=== PATIENT | male | born 1975 | race African-American/Black ===

== ENCOUNTER 2018-03-29 00:51 | Emergency (ER) | payer OTHER ==
[2018-03-29] MEDS ORDERED: methylPREDNISolone NA SUCC 125 MG/2 ML VIAL IVPUSH ONE (01:07)
[2018-03-29] MEDS ORDERED: MAGNESIUM SULF 50% (8.12 MEQ/2 ML-1 GM VIAL) IVPB ONE (01:07)
[2018-03-29] MEDS ORDERED: ALBUTEROL SO4 2.5/IPRATROPIUM 0.5 INH SOL 3 ML VIAL.NEB. NEB ONE ×6 (01:10→04:18)
[2018-03-29] MEDS ORDERED: EPINEPHrine 1:1,000 0.3 MG/0.3 ML SYR IM ONE (01:10)
--- NOTE | 2018-03-29 01:15 | PDOC ---
History of Present Illness - General Chief Complaint: Shortness of Breath Stated Complaint: ASTHMA Time Seen by Provider: 03/29/18 00:58 - History of Present Illness Initial Comments: 03/29/18 03:32 The patient is a 42 year old male with a PMH of Asthma (PRN Ventolin @ home, no intubations, no hospitalizations) who presents to our ED tonight c/o acute onset of shortness of breath. Patient notes a 2-3 day h/o viral URI symptoms including cough and runny nose. Patient took Advil this evening and 20 minutes later began feeling short of breath. Patient's @ bedside assists in history. Notes patient also had 4-5 episodes of NBNB emesis. Patient notes a h /o Ibuprofen allergy (rash) and states they were unaware that Advil contained Ibuprofen. Allergy: Ibuprofen Surgical: denies Social: denies toxic habits PMD: Dr. Chaparro Whipple As per EMR, patient has not been evaluated in our ED on prior occasion. Past History - Past Medical History Allergies/Adverse Reactions: Allergies Allergy/AdvReac Type Severity Reaction Status Date / Time ibuprofen Allergy Verified 03/29/18 00:56 Home Medications: Ambulatory Orders Azithromycin [Zithromax -] 250 mg PO DAILY 4 Days #4 tablet 03/29/18 EPINEPHrine (EPI-PEN 0.3MG) [Epipen 0.3MG -] 0.3 mg IM ASDIR #2 pens 03/29/18 Prednisone [Deltasone] 40 mg PO DAILY #4 tablet 03/29/18 Asthma: Yes COPD: No - Suicide/Smoking/Psychosocial Hx Smoking History: Never smoked Review of Systems - Review of Systems Constitutional: No: Chills, Fever HEENTM: No: Blurred Vision, Double Vision Respiratory: Yes: Shortness of Breath. No: Hemoptysis Cardiac (ROS): Yes: Chest Pain. No: Lightheadedness, Palpitations, Syncope ABD/GI: No: Constipated, Diarrhea, Nausea, Vomiting : No: Burning, Dysuria *Physical Exam - Vital Signs Last Vital Signs Temp Pulse Resp BP Pulse Ox 98.0 F 110 H 30 H 140/92 83 L 03/29/18 00:52 03/29/18 00:52 03/29/18 00:52 03/29/18 00:52 03/29/18 00:52 - Physical Exam General Appearance: Yes: Nourished, Mild Distress Neck: positive: Trachea midline, Supple Respiratory/Chest: positive: Labored Respiration, Wheezing Cardiovascular: positive: S1, S2. negative: Edema, JVD Gastrointestinal/Abdominal: positive: Normal Bowel Sounds, Soft Extremity: positive: Normal Capillary Refill, Normal Inspection Integumentary: positive: Normal Color, Dry, Warm Neurologic: positive: Fully Oriented, Alert ED Treatment Course - LABORATORY CBC & Chemistry Diagram: 03/29/18 01:30 03/29/18 01:30 - RADIOLOGY Radiology Studies Ordered: Category Date Time Status CXRPORT [CHEST X-RAY PORTABLE*] [RAD] Stat Radiology 03/29/18 01:06 Ordered Medical Decision Making - Medical Decision Making 03/29/18 02:57 42 year old male presents with dyspnea. Tachypneic (RR 20's) and Dyspneic ( SpO2 high 80's) @ presentation. Duo Neb + BIPAP + IV Solumedrol + Mg for presumed asthma exacerbation. ABG, CXR. Close monitoring for respiratory distress including CO2 narcosis. 03/29/18 03:37 S/p Duo-Neb patient continues to wheeze, however trial off Bipap patient SpO2 90 's. Will administer another Duo-Neb and reassess. CXR shows R sided infiltrate - read as possible pneumo. Will give Azithro + Ceftriaxone. 03/29/18 04:59 Patient SpO2 95% on RA. Will discharge home with return precautions, Zpack + 4 day course of steroids. I discussed the physical exam findings, ancillary test results and final diagnoses with the patient. I answered all of the patient's questions. The patient was satisfied with the care received and felt comfortable with the discharge plan and treatment plan. The patient will return to the Emergency Department with any new, persistent or worsening symptoms. *DC/Admit/Observation/Transfer Diagnosis at time of Disposition: Asthma attack - Discharge Dispostion Disposition: HOME Condition at time of disposition: Good Decision to Admit order: No - Prescriptions Prescriptions: Azithromycin [Zithromax -] 250 mg PO DAILY 4 Days #4 tablet EPINEPHrine (EPI-PEN 0.3MG) [Epipen 0.3MG -] 0.3 mg IM ASDIR #2 pens Prednisone [Deltasone] 40 mg PO DAILY #4 tablet - Referrals Referrals: Chaparro Whipple MD [Primary Care Provider] - - Patient Instructions Additional Instructions: Please follow-up with your primary care provider in the next 2 days. We have provided a copy of your chest x-ray report. Please bring this to your appointment with your doctor. We have prescribed an antibiotic and steroids for you. Please take the entire prescribed course. We have also prescribed an Epi pen for your allergy. Refrain from using medications or products that contain Ibuprofen/Advil. Return to the Emergency Department for any new/worsening/concerning symptoms including shortness of breath, chest pain, or allergic reactions. - Post Discharge Activity
[2018-03-29] MEDS ORDERED: EPINEPHrine/PF 1 MG/1 ML (1:1,000) AMPULE ONE (01:16)
[2018-03-29 01:20] VITALS: BMI 28.4
[2018-03-29] MEDS ORDERED: MAGNESIUM 1GM/D5W - 2 GM/200 ML IVPB IVPB ONE (01:22)
[2018-03-29] MEDS ORDERED: methylPREDNISolone NA SUCC 125 MG/2 ML VIAL ONE (01:22)
[2018-03-29 01:37] LABS: BASO % 0.5 % (0-2.0); EOS % 4.2 % (0-4.5); HEMATOCRIT 47.3 % (35.4-49); HEMOGLOBIN 15.5 GM/dL (11.7-16.9); LYMPH % 23.3 % (8-40); MCH 29.5 pg (25.7-33.7); MCHC 32.8 g/dl (32.0-35.9); MEAN CELL VOLUME 89.9 fl (80-96); MEAN PLT VOLUME 8.4 fl (7.5-11.1); PLATELET COUNT 379 K/MM3 (134-434); RBC 5.26 M/mm3 (4.00-5.60); RDW 14.7 % (11.9-15.9); WHITE BLOOD COUNT 11.4 K/mm3 (4.0-10.0)
[2018-03-29 01:49] LABS: ARTERIAL BLD GAS O2 SATURATION 91.6 % (90-98.9); ARTERIAL BLOOD GAS BASE EXCESS 0.2 meq/l (-2-2); ARTERIAL BLOOD GAS PCO2 52.5 mmHg (35-45); ARTERIAL BLOOD GAS pH 7.33 (7.35-7.45)
[2018-03-29 01:51] LABS: ALLENS TEST POSITIVE
[2018-03-29 02:16] LABS: ALBUMIN 3.7 g/dl (3.4-5.0); ALK PHOS 91 U/L (45-117); ANION GAP 3 MMOL/L (8-16); BILIRUBIN,TOTAL 0.3 mg/dL (0.2-1); BLOOD UREA NITROGEN 19 mg/dL (7-18); CALCIUM 8.6 mg/dL (8.5-10.1); CHLORIDE 104 mmol/L (98-107); CO2 32 mmol/L (21-32); CREATININE 1.5 mg/dL (0.55-1.3); GLUCOSE,RANDOM 105 mg/dL (74-106); N-TERMINAL BNP 41.7 pg/ml (5-125); POTASSIUM 4.7 mmol/L (3.5-5.1); SGOT/AST 42 U/L (15-37); SGPT/ALT 35 U/L (13-61); SODIUM 139 mmol/L (136-145); TOT PROT 7.8 g/dl (6.4-8.2)
--- NOTE | 2018-03-29 03:11 | PDOC ---
Attending Attestation - Medical Decision Making 03/29/18 03:17 EXAM: X-RAY CHEST Ill-defined opacities left perihilar region and bilateral lung bases, possibly pneumonia or atypical infection. No pleural effusions. Normal heart size. Read by: Maria Luz Grewal M.D. <Nadine Mccormick - Last Filed: 03/29/18 03:17> - Resident Resident Name: Mariana Giles - ED Attending Attestation I have performed the following: I have examined & evaluated the patient, The case was reviewed & discussed with the resident, I agree w/resident's findings & plan, Exceptions are as noted - HPI HPI: 03/29/18 03:03 The patient is a 42 year old male, with a past medical history of asthma, who presents to the emergency department with shortness of breath. As per patients , he took Advil Cold and Sinuses for cold symptoms last night prior to the onset of his symptoms. The patient was unaware that the medication had Ibuprofen in it. Pt states he vomited several times afterward and subsequently began to feel short of breath. Denies chest pain. Denies rash. Denies swelling of tongue or lips. The patient has never been intubated or hospitalized for his asthma in the past, usually well controlled with at home rescue inhaler. History was taken from at bedside due to patients clinical condition. Allergies: Ibuprofen. Past surgical history: None reported. Social History: Nonsmoker. Denies EtOH use and recreational drug use. Primary Care Physician: Dr. Chaparro Whipple - Physicial Exam PE: 03/29/18 03:11 GENERAL: Awake, alert, and fully oriented, in no acute distress. HEAD: No signs of trauma EYES: PERRLA, EOMI, sclera anicteric, conjunctiva clear ENT: No tongue swelling or lip swelling, Auricles normal inspection, hearing grossly normal, nares patent, oropharynx clear without exudates. Moist mucosa NECK: Nontender, no stepoffs, Normal ROM, supple, no lymphadenopathy, JVD, or masses LUNGS: + Diffuse expiratory wheezes HEART: Regular rate and rhythm, normal S1 and S2, no murmurs, rubs or gallops ABDOMEN: Soft, nontender, normoactive bowel sounds. No guarding, no rebound. No masses EXTREMITIES: Normal range of motion, no edema. No clubbing or cyanosis. No cords, erythema, or tenderness NEUROLOGICAL: Cranial nerves II through XII intact. 5/5 strength and sensation in all extremities, Normal speech, normal gait, normal cerebellar function SKIN: Warm, Dry, normal turgor, no rashes or lesions noted. - Medical Decision Making 03/29/18 03:12 42 M with SOB after ingesting ibuprofen, which he is allergic to. Exam notable for wheezing and hypoxia. Likely asthma exacerbation vs allergic reaction. - Labs - CXR - Epi 0.3mg SQ given - Duonebs, steroids - BiPAP prn 03/29/18 03:16 CXR shows infiltrate, consistent with PNA. Will tx with ceftriaxone and azithro for CAP 03/29/18 05:19 Pt reassessed - lungs now completely clear Pt reports that he feels much better. Vital signs stable Clinical exam now with no signs of acute asthma exacerbation or allergic reaction. Pt to be DC'ed with azithro and prednisone, as well as epi pen Pt is well appearing, with normal vitals. Clinically stable for DC at this time. I discussed the physical exam findings, ancillary test results and final diagnoses with the patient. I answered all of the patient's questions. The patient was satisfied with the care received and felt comfortable with the discharge plan and treatment plan. The patient agrees to follow up with the primary care physician within 24-72 hours. <Hemant Logan - Last Filed: 03/29/18 05:20> Attestations - Attestations 03/29/18 03:18 Documentation prepared by Nadine Mccormick, acting as director biomedical engineering for Hemant Logan MD. <Nadine Mccormick - Last Filed: 03/29/18 03:17>
[2018-03-29] MEDS ORDERED: AZITHROMYCIN 1 GM PACKET PO ONE (03:14)
[2018-03-29] MEDS ORDERED: SODIUM CHLORIDE 1,000 ML IV STA (03:17)
[2018-03-29] MEDS ORDERED: AZITHROMYCIN 250 MG TABLET ONE (03:38)
[2018-03-29] MEDS ORDERED: cefTRIAXone SODIUM 1 GM VIAL ONE (03:38)
[2018-03-29 05:29] VITALS: BP 114/78; PULSE 90; TEMP 97.5
--- NOTE | 2018-03-29 13:20 | EKG ---
Test Reason : Blood Pressure : / mmHG Vent. Rate : 103 BPM Atrial Rate : 103 BPM P-R Int : 150 ms QRS Dur : 098 ms QT Int : 354 ms P-R-T Axes : 072 020 047 degrees QTc Int : 463 ms POOR DATA QUALITY, INTERPRETATION MAY BE ADVERSELY AFFECTED SINUS TACHYCARDIA OTHERWISE NORMAL ECG NO PREVIOUS ECGS AVAILABLE Confirmed by SARAH PLATT MD ([id number]) on 03/29/2018 1:19:44 PM Referred By: Confirmed By:SARAH PLATT MD
== END 2018-03-29 05:29 | disposition home or self-care (01) ==
LOC: JER 00:51
PROC: 3E0F7GC Introduction of Other Therapeutic Substance into Respiratory Tract, Via Natural or Artificial Opening (ICD-10-PCS; principal; 2018-03-29)
PROC: 3E03329 Introduction of Other Anti-infective into Peripheral Vein, Percutaneous Approach (ICD-10-PCS; 2018-03-29)
PROC: 3E023GC Introduction of Other Therapeutic Substance into Muscle, Percutaneous Approach (ICD-10-PCS; 2018-03-29)
PROC: 3E033GC Introduction of Other Therapeutic Substance into Peripheral Vein, Percutaneous Approach (ICD-10-PCS; 2018-03-29)
PROC: 3E0337Z Introduction of Electrolytic and Water Balance Substance into Peripheral Vein, Percutaneous Approach (ICD-10-PCS; 2018-03-29)
DX: J45.901 Unspecified asthma with (acute) exacerbation (principal)
CPT/HCPCS: 36415; 36600; 71045-TC-FY; 80053; 82375; 82550; 82553; 82803; 83050; 83880; 84484; 85025; 93005; 93010; 99283-25; J7030; J7620